=== PATIENT | female | born 2005 | race Caucasian/White ===

== ENCOUNTER → 2025-08-31 | Outpatient (CLI) | payer BC, SELFPAY ==
--- NOTE | 2025-08-31 10:30 | XR_ITS ---
EXAMINATION: Ultrasound abdominal aorta TECHNIQUE: Grayscale sonographic images abdominal aorta Date and time: August 31, 2025, 1053 hours INDICATIONS: Pulsation in the abdomen 2 years. FINDINGS: Transverse dimension proximal aorta 2.0 cm mid aorta 1.5 cm distal aorta 1.5 cm right iliac 1.0 cm left iliac 1.0 cm IMPRESSION: Negative for abdominal aortic aneurysm
== END | disposition home or self-care (01) ==
LOC: CDIM 10:38
PROVIDERS: PCP Psychiatry & Neurology Neurology; Referring Provider Nurse Practitioner Family; Visit Provider Nurse Practitioner Family
DX: R19.8 Other specified symptoms and signs involving the digestive system and abdomen (principal)
CPT/HCPCS: 76706